=== PATIENT | male | born 2000 | race African-American/Black ===

== ENCOUNTER 2019-02-07 21:12 | Emergency (ER) | payer OTHER, SELFPAY ==
[2019-02-07] MEDS ORDERED: Fentanyl 100 MCG/2 ML VIAL ONE (21:26)
[2019-02-07] MEDS ORDERED: Ketorolac Tromethamine 30 MG/ML VIAL ONE (21:26)
--- NOTE | 2019-02-07 21:43 | RAD ---
XR Shoulder Rt 2 View: 02/07/2019 9:23 PM CLINICAL INDICATION: Right shoulder pain COMPARISON: None. FINDINGS: Fracture:No fracture. Alignment:Abnormal inferior and anterior alignment of humeral head relative to the scapular glenoid. Incidental findings:None of significance. IMPRESSION: Anterior right shoulder dislocation. No discrete fracture identified. Imaging follow-up may be obtain ed upon restored alignment for further evaluation..
[2019-02-07] MEDS ORDERED: Ketamine 50 MG/ML (10ML VIAL) ONE (21:59)
--- NOTE | 2019-02-07 23:33 | RAD ---
XR Shoulder Rt 2 View: 02/07/2019 11:18 PM CLINICAL INDICATION: Right shoulder dislocation COMPARISON: Earlier same day FINDINGS: Fracture:No fracture. Interval restored alignment of right shoulder. Incidental findings:None of significance. IMPRESSION: Restored right shoulder alignment.
== END 2019-02-07 23:51 | disposition home or self-care (01) ==
LOC: ERS 21:12
DX: S43.004A Unspecified dislocation of right shoulder joint, initial encounter (principal); X58.XXXA Exposure to other specified factors, initial encounter
CPT/HCPCS: 23650; 96374; 96375; J1885; J3010